=== PATIENT | female | born 1935 | race Caucasian/White ===

== ENCOUNTER → 2019-03-03 | Outpatient (CLI) | payer MEDICARE, BC ==
[~2019-03-03] MED LIST: AMLODIPINE-BEN1 EAC3 PO; ASPIR 8181 M1 PO; CALCITRIOL0.25 MCG PO; CALCIUM 500 +1 EAC5 PO; CLONAZEPAM 1 MG1 M1 PO; COUMADIN 5 MG TA5 M1 PO; ENOXAPARIN60 MG/0.1 SUBQ; GABAPENTIN 100100 MG PO; KRILL OIL500 MG PO; LEVOTHYROXIN0.075 MG PO; MS CONTIN15 MG PO; OXYBUTYNIN 5 MG5 M2 PO; PILOCARPINE HCL5 M1 PO
[2019-03-03 13:53] LABS: CREATININE 1.4 mg/dL (0.6-1.3)
== END ==
LOC: M.MRI 03-01 08:30 → M.LAB 12:30 → M.MRI 13:30
DX: Z01.818 Encounter for other preprocedural examination (principal); M51.17 Intervertebral disc disorders with radiculopathy, lumbosacral region; M50.11 Cervical disc disorder with radiculopathy, high cervical region; M51.35 Other intervertebral disc degeneration, thoracolumbar region; M51.36 Other intervertebral disc degeneration, lumbar region; Z88.8 Allergy status to other drugs, medicaments and biological substances; Z88.0 Allergy status to penicillin

== ENCOUNTER → 2019-04-21 | Outpatient (CLI) | payer MEDICARE, BC | LOC: M.NUC 04-17 11:49 | DX: M19.012 Primary osteoarthritis, left shoulder (principal); M19.011 Primary osteoarthritis, right shoulder; M19.042 Primary osteoarthritis, left hand; M19.041 Primary osteoarthritis, right hand; G89.4 Chronic pain syndrome; I10 Essential (primary) hypertension; G43.909 Migraine, unspecified, not intractable, without status migrainosus; G62.9 Polyneuropathy, unspecified; M06.9 Rheumatoid arthritis, unspecified; M35.00 Sjogren syndrome, unspecified; E20.9 Hypoparathyroidism, unspecified; Z88.8 Allergy status to other drugs, medicaments and biological substances; Z90.710 Acquired absence of both cervix and uterus; Z80.3 Family history of malignant neoplasm of breast; Z72.89 Other problems related to lifestyle; Z79.899 Other long term (current) drug therapy ==

== ENCOUNTER → 2019-05-10 | Outpatient (CLI) | payer MEDICARE, BC ==
[2019-05-10 11:56] LABS: CREATININE 0.9 mg/dL (0.6-1.3)
== END ==
LOC: M.LAB 11:29 → M.CT 13:00
DX: N32.89 Other specified disorders of bladder (principal); D49.2 Neoplasm of unspecified behavior of bone, soft tissue, and skin; R89.8 Other abnormal findings in specimens from other organs, systems and tissues; I70.0 Atherosclerosis of aorta; M51.34 Other intervertebral disc degeneration, thoracic region; M51.36 Other intervertebral disc degeneration, lumbar region; Z90.710 Acquired absence of both cervix and uterus